=== PATIENT | female | born 1960 | race Caucasian/White ===

== ENCOUNTER 2021-05-05 13:21 | Outpatient (CLI) | payer OTHER ==
[2021-05-05 13:32] LABS: Potassium 4.3 mmol/L (3.5-5.1)
== END 2021-05-05 13:22 | disposition home or self-care (01) ==
LOC: NAV LABSP 13:21
DX: C73 Malignant neoplasm of thyroid gland (principal); D3A.090 Benign carcinoid tumor of the bronchus and lung
CPT/HCPCS: 36415; 84132